=== PATIENT | male | born 1990 | race Caucasian/White ===

== ENCOUNTER 2025-03-08 18:51 | Emergency (ER) | payer OTHER ==
[~2025-03-08] VITALS: Ht 175.3 cm; Wt 140.6 kg
[2025-03-08] MEDS ORDERED: LABETALOL HCL 200 MG/40 ML VIAL IV ONE (19:15)
[2025-03-08] MEDS ORDERED: NIFEDIPINE 10 MG CAPSULE PO ONE (19:15)
[2025-03-08] MEDS ORDERED: 0.9 % SODIUM CHLORIDE 1,000 ML IV ONE (19:30)
[2025-03-08 19:38] LABS: BASO % 0.3 % (0.1-1.2); EOS # 0.22 (0.04-0.54); EOS % 1.7 % (0.7-7.0); LYMPH # 2.85 (1.18-3.74); LYMPH % 22.2 % (19.3-53.1); MEAN PLATELET VOLUME 10.40 fl (9.4-12.4); MONO # 0.75 (0.24-0.82); MONO % 5.9 % (4.7-12.5); NEUT # 8.91 (1.56-6.13); NEUT % 69.6 % (34.0-71.1); RED CELL DISTRIBUTION WIDTH 12.8 % (11.6-14.4)
[2025-03-08 20:19] LABS: ALT/SGPT 62.0 U/L (12-78); AST/SGOT 33.0 U/L (15-37); BILIRUBIN TOTAL 0.31 mg/dL (0.3-1.2); BUN CREA RATIO 11.0 (7.0-25.0); CREATININE SERUM 1.33 mg/dL (0.70-1.30); GFR 62.31; GLOBULINA 3.9 G/DL (2.4-3.5); OSMOLALITY SERUM 290.0 MOSM/KG (275-295)
[2025-03-08 20:20] LABS: GLUCOSE FASTING 313.0 mg/dL (65-100)
[2025-03-08] MEDS ORDERED: KETOROLAC TROMETHAMINE 60 MG VIAL IM ONE ×2 (22:00→22:13)
[2025-03-08] MEDS ORDERED: KETO10TA2 PO (22:36)
== END 2025-03-08 22:53 | disposition home or self-care (01) ==
LOC: ER 18:51
PROVIDERS: General Practice
DX: S80.02XA Contusion of left knee, initial encounter (principal); W18.39XA Other fall on same level, initial encounter; Y93.K1 Activity, walking an animal; Y92.89 Other specified places as the place of occurrence of the external cause; Y99.9 Unspecified external cause status